=== PATIENT | male | born 1955 | race Caucasian/White ===

== ENCOUNTER 2018-12-10 12:12 | Emergency (ER) | payer BC ==
[~2018-12-10] VITALS: Ht 177.8 cm; Wt 92.3 kg
[2018-12-10 12:29] VITALS: BP 167/88
[2018-12-10] MEDS ORDERED: HYDROcodone/acetaminophen 5mg/325mg tablet PO ONE (13:15)
[2018-12-10] MEDS ORDERED: HYDR-3965 PO (13:20)
== END 2018-12-10 13:51 | disposition home or self-care (01) ==
LOC: ER 12:13
DX: S92.022A Displaced fracture of anterior process of left calcaneus, initial encounter for closed fracture (principal); S90.32XA Contusion of left foot, initial encounter; Z98.890 Other specified postprocedural states; W11.XXXA Fall on and from ladder, initial encounter; Y93.89 Activity, other specified; Y92.89 Other specified places as the place of occurrence of the external cause; Y99.9 Unspecified external cause status
CPT/HCPCS: 29515; 73610; 73630; 99283

== ENCOUNTER 2018-12-25 15:12 | Outpatient (CLI) | payer BC | END 2018-12-25 16:24 | disposition home or self-care (01) | LOC: ORTHO 15:12 | PROVIDERS: ATTEND Orthopaedic Surgery | DX: S92.002G Unspecified fracture of left calcaneus, subsequent encounter for fracture with delayed healing (principal); S82.392D Other fracture of lower end of left tibia, subsequent encounter for closed fracture with routine healing; S82.492D Other fracture of shaft of left fibula, subsequent encounter for closed fracture with routine healing; X58.XXXD Exposure to other specified factors, subsequent encounter | CPT/HCPCS: 73610; 73650; G0463 ==